=== PATIENT | male | born 1965 | race Caucasian/White ===

== ENCOUNTER 2020-07-04 09:51 | Emergency (ER) | payer OTHER ==
[2020-07-04 10:03] VITALS: BP 125/77; PULSE 80; TEMP 98.3; BMI 25.0
[2020-07-04 11:07] LABS: BASO % 0.4 % (0-2.0); EOS % 0.3 % (0-4.5); HEMATOCRIT 48.6 % (35.4-49); HEMOGLOBIN 16.5 GM/dL (11.7-16.9); MCH 30.9 pg (25.7-33.7); MCHC 33.9 g/dl (32.0-35.9); MEAN CELL VOLUME 91.2 fl (80-96); MEAN PLT VOLUME 7.9 fl (7.5-11.1); NEUT % 62.3 % (42.8-82.8); PLATELET COUNT 288 K/MM3 (134-434); RBC 5.33 M/mm3 (4.00-5.60); WHITE BLOOD COUNT 4.7 K/mm3 (4.0-10.0)
[2020-07-04 11:27] LABS: POTASSIUM 4.4 mmol/L (3.5-5.1)
[2020-07-04 11:28] LABS: ALBUMIN 3.8 g/dl (3.4-5.0); CALCIUM 9.7 mg/dL (8.5-10.1)
[2020-07-04 11:29] LABS: BLOOD UREA NITROGEN 10.1 mg/dL (7-18)
[2020-07-04 11:32] LABS: CREATININE 1.2 mg/dL (0.55-1.3)
[2020-07-04 11:33] LABS: BILIRUBIN,TOTAL 0.4 mg/dL (0.2-1)
[2020-07-04 12:15] LABS: EPI CELLS 3 /uL (0-25.1); HYALINE CASTS 0 /uL (0-3.1); PH,URINE 5.5 (5.0-8.0); URINE APPEARANCE CLEAR; URINE BACTERIA 322 /uL (0-1359); URINE BILIRUBIN NEGATIVE (NEGATIVE); URINE COLOR YELLOW; URINE GLUCOSE (UA) NEGATIVE (NEGATIVE); URINE KETONE NEGATIVE (NEGATIVE); URINE LEUK ESTERASE NEGATIVE (NEGATIVE); URINE NITRITE NEGATIVE (NEGATIVE); URINE PROTEIN NEGATIVE (NEGATIVE); URINE RBC 25 /uL (0-23.9); URINE UROBILINOGEN 0.2 mg/dL (0.2-1.0); URINE WBC 5 /uL (0-25.8)
[2020-07-04 12:24] LABS: ANISOCYTOSIS 1+; MACROCYTOSIS 1+; PLATELET ESTIMATE NORMAL
== END 2020-07-04 15:36 | disposition home or self-care (01) ==
LOC: JER 09:51
DX: R10.32 Left lower quadrant pain (principal); R74.01 Elevation of levels of liver transaminase levels
CPT/HCPCS: 36415; 74177-TC; 80053; 81003; 85025; 99284-25; Q9967